=== PATIENT | female | born 1945 | race Hispanic/Latino ===

== ENCOUNTER 2022-07-23 13:12 | Inpatient (IN) | payer MEDICARE, MEDICAID ==
[2022-07-23 13:58] LABS: #Eosinphils 0.1 thou/uL (0.0-0.7); #Monocytes 0.9 thou/uL (0.11-0.59); #Neutrophils 5.3 thou/uL (1.40-6.50); %Basophils 0.6 % (0.0-1.0); %Eosinophils 1.2 % (0.0-10.0); %Lymphocytes 13.1 % (21.0-51.0); %Monocytes 12.4 % (0.0-10.0); %Neutrophils 72.6 % (42.0-75.0); ALT (SGPT) 19 U/L (8-55); AST (SGOT) 38 U/L (5-34); Alkaline Phosphatase 134 U/L (40-110); Anion Gap 11 mmol/L (10-20); BUN (Urea Nitrogen) 12 mg/dL (9.8-20.1); Bilirubin, Total 0.9 mg/dL (0.2-1.2); Calc. Creatinine Clearance 0 mL/min (70-130); Calcium 7.6 mg/dL (7.8-10.44); Carbon Dioxide 26 mmol/L (23-31); Chloride 110 mmol/L (98-107); Estimated GFR 40; Globulin 3.5 g/dL (2.4-3.5); Glucose 87 mg/dL (83-110); Hemoglobin 10.4 g/dL (12.0-16.0); Mean Corpuscular HGB CONC 33.5 g/dL (32.0-36.0); Mean Corpuscular Hemoglobin 37.3 pg (27.0-31.0); Mean Platelet Volume 7.4 fL (7.4-10.4); Platelet Count 182 10x3/uL (130-400); Potassium 3.3 mmol/L (3.5-5.1); Protein, Total 5.5 g/dL (5.8-8.1); RBC Distribution Width 13.9 % (11.5-14.5); Sodium 144 mmol/L (136-145); White Blood Cell (WBC) Count 7.3 10x3/uL (4.8-10.8)
[2022-07-23 13:59] LABS: MDiff Complete? YES
[2022-07-23] MEDS ORDERED: Furosemide 40 MG/4 ML VIAL ONE (14:18)
[2022-07-23] MEDS ORDERED: Acetaminophen 325 MG TAB PO PRN (16:15)
[2022-07-23] MEDS ORDERED: Ondansetron ODT 4 MG TAB SL PRN (16:15)
[2022-07-23] MEDS ORDERED: Ondansetron PF 4 MG/2 ML Vial IVP PRN (16:15)
[2022-07-23 16:41] VITALS: BMI 31.1
[2022-07-23 16:46] LABS: SARS-CoV-2 NAA Rapid Test DETECTED (NotDetected)
[2022-07-23] MEDS: Rosuvastatin 10 MG TAB PO SCH (20:41)
[2022-07-23] MEDS: Midodrine HCl 5 MG TAB PO SCH (20:41)
[2022-07-23] MEDS: Mirtazapine 15 MG TAB PO SCH (20:41)
[2022-07-23] MEDS: Mometasone/Formoterol 200/5 60 PUFF INH SCH (20:42)
[2022-07-24] MEDS ORDERED: Megestrol Acetate 40 MG TAB PO SCH (09:00)
[2022-07-24] MEDS ORDERED: Bisacodyl 5 MG TAB PO PRN (09:01)
[2022-07-24] MEDS ORDERED: Bisacodyl 10 MG SUPP PR PRN (09:01)
[2022-07-24] MEDS: Spironolactone 25 MG TAB PO SCH (09:37)
[2022-07-24] MEDS: Calcitriol 0.25 MCG CAP PO SCH (09:37)
[2022-07-24] MEDS: Midodrine HCl 5 MG TAB PO SCH ×3 (09:38→20:49)
[2022-07-24] MEDS: FLUoxetine HCl 10 MG CAP PO SCH (09:38)
[2022-07-24] MEDS: Aspirin 81 mg Enteric Coated Tablet PO SCH (09:40)
[2022-07-24] MEDS: Montelukast Sodium 10 mg Tablet PO SCH (09:41)
[2022-07-24] MEDS: Mometasone/Formoterol 200/5 60 PUFF INH SCH ×2 (09:42→20:51)
[2022-07-24] MEDS: Torsemide 20 MG TAB PO SCH (10:09)
[2022-07-24] MEDS: Fludrocortisone Acetate 0.1 MG TAB PO SCH (10:36)
[2022-07-24] MEDS: Guaifenesin DM 100-10/5 ML UDCUP PO PRN (14:32)
[2022-07-24] MEDS ORDERED: Multivit, Therapeutic 1 TAB PO SCH (18:30)
[2022-07-24] MEDS ORDERED: Cholecalciferol 1,000 UNITS (25 MCG) TAB PO SCH (18:45)
[2022-07-24] MEDS: Cholecalciferol 1,000 UNITS (25 MCG) TAB PO SCH (18:53)
[2022-07-24] MEDS: Mirtazapine 15 MG TAB PO SCH (20:49)
[2022-07-24] MEDS: Rosuvastatin 10 MG TAB PO SCH (20:49)
[2022-07-24] MEDS: Gabapentin 100 MG CAP PO SCH (20:50)
[2022-07-25] MEDS: Aspirin 81 mg Enteric Coated Tablet PO SCH (08:43)
[2022-07-25] MEDS: FLUoxetine HCl 10 MG CAP PO SCH (08:43)
[2022-07-25] MEDS: Calcitriol 0.25 MCG CAP PO SCH (08:43)
[2022-07-25] MEDS: Fludrocortisone Acetate 0.1 MG TAB PO SCH (08:44)
[2022-07-25] MEDS: Gabapentin 100 MG CAP PO SCH ×2 (08:44→20:33)
[2022-07-25] MEDS: Montelukast Sodium 10 mg Tablet PO SCH (08:44)
[2022-07-25] MEDS: Potassium Chloride 20 MEQ TAB PO SCH (08:46)
[2022-07-25] MEDS: Midodrine HCl 5 MG TAB PO SCH ×3 (08:46→20:33)
[2022-07-25] MEDS: Spironolactone 25 MG TAB PO SCH (08:46)
[2022-07-25] MEDS: Multivit, Therapeutic 1 TAB PO SCH (08:46)
[2022-07-25] MEDS: Enoxaparin Sodium 30 MG/0.3 ML SYRINGE SC SCH (08:47)
[2022-07-25] MEDS: Cholecalciferol 1,000 UNITS (25 MCG) TAB PO SCH (08:47)
[2022-07-25] MEDS: Mometasone/Formoterol 200/5 60 PUFF INH SCH ×2 (08:48→20:34)
[2022-07-25] MEDS: Mirtazapine 15 MG TAB PO SCH (20:33)
[2022-07-25] MEDS: Rosuvastatin 10 MG TAB PO SCH (20:33)
[2022-07-26] MEDS: Enoxaparin Sodium 30 MG/0.3 ML SYRINGE SC SCH (08:27)
[2022-07-26] MEDS: FLUoxetine HCl 10 MG CAP PO SCH (08:27)
[2022-07-26] MEDS: Multivit, Therapeutic 1 TAB PO SCH (08:27)
[2022-07-26] MEDS: Cholecalciferol 1,000 UNITS (25 MCG) TAB PO SCH (08:28)
[2022-07-26] MEDS: Gabapentin 100 MG CAP PO SCH ×2 (08:28→21:08)
[2022-07-26] MEDS: Potassium Chloride 20 MEQ TAB PO SCH (08:28)
[2022-07-26] MEDS: Midodrine HCl 5 MG TAB PO SCH ×3 (08:29→21:08)
[2022-07-26] MEDS: Calcitriol 0.25 MCG CAP PO SCH (08:29)
[2022-07-26] MEDS: Fludrocortisone Acetate 0.1 MG TAB PO SCH (08:29)
[2022-07-26] MEDS: Spironolactone 25 MG TAB PO SCH (08:30)
[2022-07-26] MEDS: Mometasone/Formoterol 200/5 60 PUFF INH SCH ×2 (08:30→21:09)
[2022-07-26] MEDS: Aspirin 81 mg Enteric Coated Tablet PO SCH (08:30)
[2022-07-26] MEDS: Montelukast Sodium 10 mg Tablet PO SCH (08:30)
[2022-07-26] MEDS: Rosuvastatin 10 MG TAB PO SCH (21:08)
[2022-07-26] MEDS: Mirtazapine 15 MG TAB PO SCH (21:08)
[2022-07-27 05:47] LABS: #Basophils 0.1 thou/uL (0.0-0.2); #Lymphocytes 1.6 thou/uL (1.20-3.40); #Monocytes 1.1 thou/uL (0.11-0.59); #Neutrophils 6.3 thou/uL (1.40-6.50); %Basophils 1.2 % (0.0-1.0); %Lymphocytes 17.4 % (21.0-51.0); %Monocytes 12.2 % (0.0-10.0); %Neutrophils 69.1 % (42.0-75.0); Hemoglobin 8.3 g/dL (12.0-16.0); Mean Corpuscular HGB CONC 34.3 g/dL (32.0-36.0); Mean Corpuscular Hemoglobin 37.1 pg (27.0-31.0); Mean Platelet Volume 8.2 fL (7.4-10.4); Platelet Count 135 10x3/uL (130-400); Red Blood Cell (RBC) Count 2.23 mill/uL (4.20-5.40); White Blood Cell (WBC) Count 9.2 10x3/uL (4.8-10.8)
[2022-07-27 05:59] LABS: ALT (SGPT) 12 U/L (8-55); AST (SGOT) 27 U/L (5-34); Albumin 1.7 g/dL (3.4-4.8); Alkaline Phosphatase 118 U/L (40-110); Anion Gap 10 mmol/L (10-20); BUN (Urea Nitrogen) 12 mg/dL (9.8-20.1); Bilirubin, Total 0.6 mg/dL (0.2-1.2); Calc. Creatinine Clearance 45 mL/min (70-130); Calcium 7.7 mg/dL (7.8-10.44); Carbon Dioxide 26 mmol/L (23-31); Chloride 111 mmol/L (98-107); Estimated GFR 38; Globulin 2.9 g/dL (2.4-3.5); Glucose 81 mg/dL (83-110); Potassium 3.3 mmol/L (3.5-5.1); Protein, Total 4.6 g/dL (5.8-8.1); Sodium 144 mmol/L (136-145)
[2022-07-27 08:00] LABS: Thyroid Stimulating Hormone 9.6248 uIU/mL (0.35-4.94)
[2022-07-27] MEDS: Cholecalciferol 1,000 UNITS (25 MCG) TAB PO SCH (09:12)
[2022-07-27] MEDS: Montelukast Sodium 10 mg Tablet PO SCH (09:12)
[2022-07-27] MEDS: Enoxaparin Sodium 30 MG/0.3 ML SYRINGE SC SCH (09:12)
[2022-07-27] MEDS: Multivit, Therapeutic 1 TAB PO SCH (09:12)
[2022-07-27] MEDS: Aspirin 81 mg Enteric Coated Tablet PO SCH (09:12)
[2022-07-27] MEDS: Midodrine HCl 5 MG TAB PO SCH ×3 (09:12→20:41)
[2022-07-27] MEDS: Potassium Chloride 20 MEQ TAB PO SCH (09:12)
[2022-07-27] MEDS: FLUoxetine HCl 10 MG CAP PO SCH (09:12)
[2022-07-27] MEDS: Fludrocortisone Acetate 0.1 MG TAB PO SCH (09:13)
[2022-07-27] MEDS: Spironolactone 25 MG TAB PO SCH ×2 (09:13→09:33)
[2022-07-27] MEDS: Gabapentin 100 MG CAP PO SCH ×2 (09:13→20:41)
[2022-07-27] MEDS: Calcitriol 0.25 MCG CAP PO SCH (09:14)
[2022-07-27] MEDS: Mometasone/Formoterol 200/5 60 PUFF INH SCH ×2 (09:14→20:42)
[2022-07-27] MEDS: Torsemide 20 MG TAB PO SCH (09:33)
[2022-07-27] MEDS: Guaifenesin DM 100-10/5 ML UDCUP PO PRN (20:39)
[2022-07-27] MEDS: Rosuvastatin 10 MG TAB PO SCH (20:41)
[2022-07-27] MEDS: Mirtazapine 15 MG TAB PO SCH (20:41)
[2022-07-28] MEDS: Guaifenesin DM 100-10/5 ML UDCUP PO PRN ×3 (05:45→20:16)
[2022-07-28] MEDS: Montelukast Sodium 10 mg Tablet PO SCH (09:02)
[2022-07-28] MEDS: Aspirin 81 mg Enteric Coated Tablet PO SCH (09:02)
[2022-07-28] MEDS: FLUoxetine HCl 10 MG CAP PO SCH (09:02)
[2022-07-28] MEDS: Fludrocortisone Acetate 0.1 MG TAB PO SCH (09:02)
[2022-07-28] MEDS: Multivit, Therapeutic 1 TAB PO SCH (09:03)
[2022-07-28] MEDS: Gabapentin 100 MG CAP PO SCH ×2 (09:03→20:16)
[2022-07-28] MEDS: Potassium Chloride 20 MEQ TAB PO SCH (09:03)
[2022-07-28] MEDS: Midodrine HCl 5 MG TAB PO SCH ×3 (09:03→20:16)
[2022-07-28] MEDS: Spironolactone 25 MG TAB PO SCH (09:04)
[2022-07-28] MEDS: Enoxaparin Sodium 30 MG/0.3 ML SYRINGE SC SCH (09:04)
[2022-07-28] MEDS: Mometasone/Formoterol 200/5 60 PUFF INH SCH ×2 (09:04→20:18)
[2022-07-28] MEDS: Cholecalciferol 1,000 UNITS (25 MCG) TAB PO SCH (09:04)
[2022-07-28] MEDS: Calcitriol 0.25 MCG CAP PO SCH (09:04)
[2022-07-28] MEDS ORDERED: Ondansetron ODT 4 MG TAB PO PRN (10:24)
[2022-07-28] MEDS ORDERED: Bisacodyl 5 MG TAB PO PRN (10:25)
[2022-07-28] MEDS ORDERED: Bisacodyl 10 MG SUPP PR PRN (10:26)
[2022-07-28] MEDS: Rosuvastatin 10 MG TAB PO SCH (20:16)
[2022-07-28] MEDS: Mirtazapine 15 MG TAB PO SCH (20:16)
[2022-07-28 21:23] LABS: Bilirubin Small (Negative); Blood, Urine Negative (Negative); Clarity Cloudy (Clear); Glucose, Urine (Dipstick) Negative (Negative); Ketone, Urine Trace mg/dL (Negative); Leukocyte Negative (Negative); Nitrite Negative (Negative); Protein, Urine (Dipstick) > or equal to 300 mg/dL (Neg-Trace)
[2022-07-28 21:29] LABS: RBC/HPF None Seen HPF (0-3); Specific Gravity, Urine 1.024 (1.002-1.036)
[2022-07-28 21:30] LABS: Bacteria/HPF 2+ HPF (None Seen); Mucous/LPF 2+ LPF (<2+)
[2022-07-29 05:54] LABS: Hemoglobin 8.6 g/dL (12.0-16.0); Mean Corpuscular HGB CONC 35.5 g/dL (32.0-36.0); Mean Corpuscular Hemoglobin 38.4 pg (27.0-31.0); Mean Platelet Volume 10.3 fL (7.4-10.4); Platelet Count 115 10x3/uL (130-400); RBC Distribution Width 13.2 % (11.5-14.5); Red Blood Cell (RBC) Count 2.24 mill/uL (4.20-5.40); White Blood Cell (WBC) Count 23.9 10x3/uL (4.8-10.8)
[2022-07-29 06:05] LABS: ALT (SGPT) 13 U/L (8-55); AST (SGOT) 37 U/L (5-34); Albumin 1.8 g/dL (3.4-4.8); Alkaline Phosphatase 140 U/L (40-110); Anion Gap 12 mmol/L (10-20); BUN (Urea Nitrogen) 17 mg/dL (9.8-20.1); Bilirubin, Total 0.6 mg/dL (0.2-1.2); Calc. Creatinine Clearance 33 mL/min (70-130); Calcium 8.1 mg/dL (7.8-10.44); Carbon Dioxide 23 mmol/L (23-31); Chloride 108 mmol/L (98-107); Estimated GFR 27; Globulin 3.2 g/dL (2.4-3.5); Glucose 77 mg/dL (83-110); Potassium 3.9 mmol/L (3.5-5.1); Sodium 139 mmol/L (136-145)
[2022-07-29 06:12] LABS: MDiff Complete? YES; Macrocytosis SLIGHT = 6-15 cells (100X) (0-5/hpf); Platelet Morphology Comment Appears Decreased
[2022-07-29 06:13] LABS: Lymphocytes 4 % (21-51); Monocytes 5 % (0-10); Neutrophil 90 % (42-75)
[2022-07-29] MEDS: Fludrocortisone Acetate 0.1 MG TAB PO SCH (08:53)
[2022-07-29] MEDS: FLUoxetine HCl 10 MG CAP PO SCH (08:53)
[2022-07-29] MEDS: Calcitriol 0.25 MCG CAP PO SCH (08:53)
[2022-07-29] MEDS: Midodrine HCl 5 MG TAB PO SCH ×3 (08:53→20:35)
[2022-07-29] MEDS: Multivit, Therapeutic 1 TAB PO SCH (08:53)
[2022-07-29] MEDS: Cholecalciferol 1,000 UNITS (25 MCG) TAB PO SCH (08:54)
[2022-07-29] MEDS: Potassium Chloride 20 MEQ TAB PO SCH (08:54)
[2022-07-29] MEDS: Gabapentin 100 MG CAP PO SCH ×2 (08:54→20:35)
[2022-07-29] MEDS: Montelukast Sodium 10 mg Tablet PO SCH (08:54)
[2022-07-29] MEDS: Aspirin 81 mg Enteric Coated Tablet PO SCH (08:55)
[2022-07-29] MEDS: Enoxaparin Sodium 30 MG/0.3 ML SYRINGE SC SCH (09:02)
[2022-07-29] MEDS: Spironolactone 25 MG TAB PO SCH (09:02)
[2022-07-29] MEDS: Torsemide 20 MG TAB PO SCH (09:03)
[2022-07-29] MEDS: Mometasone/Formoterol 200/5 60 PUFF INH SCH ×2 (09:04→21:00)
[2022-07-29] MEDS: Cefepime 1 GM in Sodium Chloride 0.9% 100 ML IVPB SCH (20:34)
[2022-07-29] MEDS: Mirtazapine 15 MG TAB PO SCH (20:35)
[2022-07-29] MEDS: Rosuvastatin 10 MG TAB PO SCH (20:35)
[2022-07-30] MEDS: Benzonatate 100 MG CAP PO PRN ×2 (04:43→21:34)
[2022-07-30] MEDS: FLUoxetine HCl 10 MG CAP PO SCH (09:34)
[2022-07-30] MEDS: Gabapentin 100 MG CAP PO SCH ×2 (09:34→21:30)
[2022-07-30] MEDS: Enoxaparin Sodium 30 MG/0.3 ML SYRINGE SC SCH (09:34)
[2022-07-30] MEDS: Torsemide 20 MG TAB PO SCH (09:35)
[2022-07-30] MEDS: Aspirin 81 mg Enteric Coated Tablet PO SCH (09:35)
[2022-07-30] MEDS: Multivit, Therapeutic 1 TAB PO SCH (09:35)
[2022-07-30] MEDS: Calcitriol 0.25 MCG CAP PO SCH (09:35)
[2022-07-30] MEDS: Cholecalciferol 1,000 UNITS (25 MCG) TAB PO SCH (09:36)
[2022-07-30] MEDS: Spironolactone 25 MG TAB PO SCH (09:36)
[2022-07-30] MEDS: Saccharomyces boulardii 250 MG CAP PO SCH (09:36)
[2022-07-30] MEDS: Montelukast Sodium 10 mg Tablet PO SCH (09:36)
[2022-07-30] MEDS: Potassium Chloride 20 MEQ TAB PO SCH (09:36)
[2022-07-30] MEDS: Midodrine HCl 5 MG TAB PO SCH ×3 (09:36→21:30)
[2022-07-30] MEDS: Fludrocortisone Acetate 0.1 MG TAB PO SCH (09:37)
[2022-07-30] MEDS: Mometasone/Formoterol 200/5 60 PUFF INH SCH ×2 (09:37→21:42)
[2022-07-30] MEDS ORDERED: Loperamide HCl 2 MG CAP PO PRN (16:59)
[2022-07-30] MEDS ORDERED: Loperamide HCl 2 MG CAP PO SCH (17:00)
[2022-07-30] MEDS ORDERED: Sodium Chloride 0.9% 1,000 ML IV SCH (17:00)
[2022-07-30] MEDS: Rosuvastatin 10 MG TAB PO SCH (21:29)
[2022-07-30] MEDS: Mirtazapine 15 MG TAB PO SCH (21:30)
[2022-07-30] MEDS: Cefepime 1 GM in Sodium Chloride 0.9% 100 ML IVPB SCH (21:30)
[2022-07-31] MEDS: Mometasone/Formoterol 200/5 60 PUFF INH SCH ×2 (00:05→09:38)
[2022-07-31 05:14] LABS: ALT (SGPT) 11 U/L (8-55); AST (SGOT) 39 U/L (5-34); Albumin 1.6 g/dL (3.4-4.8); Alkaline Phosphatase 132 U/L (40-110); Anion Gap 14 mmol/L (10-20); BUN (Urea Nitrogen) 32 mg/dL (9.8-20.1); Bilirubin, Total 0.4 mg/dL (0.2-1.2); Calc. Creatinine Clearance 26 mL/min (70-130); Carbon Dioxide 21 mmol/L (23-31); Chloride 106 mmol/L (98-107); Estimated GFR 20; Globulin 2.9 g/dL (2.4-3.5); Glucose 62 mg/dL (83-110); Potassium 4.7 mmol/L (3.5-5.1); Protein, Total 4.5 g/dL (5.8-8.1); Sodium 136 mmol/L (136-145)
[2022-07-31] MEDS: Levothyroxine Sodium 88 MCG TAB PO SCH (05:52)
[2022-07-31 05:58] LABS: #Lymphocytes 0.9 thou/uL (1.20-3.40); #Monocytes 0.8 thou/uL (0.11-0.59); #Neutrophils 11.6 thou/uL (1.40-6.50); %Basophils 0.3 % (0.0-1.0); %Lymphocytes 6.6 % (21.0-51.0); %Monocytes 5.8 % (0.0-10.0); %Neutrophils 87.2 % (42.0-75.0); Hemoglobin 7.7 g/dL (12.0-16.0); Mean Corpuscular HGB CONC 34.3 g/dL (32.0-36.0); Mean Corpuscular Hemoglobin 37.9 pg (27.0-31.0); Mean Platelet Volume 8.9 fL (7.4-10.4); Platelet Count 138 10x3/uL (130-400); RBC Distribution Width 13.6 % (11.5-14.5); Red Blood Cell (RBC) Count 2.04 mill/uL (4.20-5.40); White Blood Cell (WBC) Count 13.3 10x3/uL (4.8-10.8)
[2022-07-31 06:28] LABS: Anisocytosis MODERATE=16-30 cells (100X) (0-5/hpf); MDiff Complete? YES; Macrocytosis SLIGHT = 6-15 cells (100X) (0-5/hpf); Platelet Morphology Comment Appears Adequate; Polychromasia SLIGHT = 2-3 cells (100X) (0-2/hpf)
[2022-07-31] MEDS: Enoxaparin Sodium 30 MG/0.3 ML SYRINGE SC SCH (09:34)
[2022-07-31] MEDS: FLUoxetine HCl 10 MG CAP PO SCH (09:35)
[2022-07-31] MEDS: Gabapentin 100 MG CAP PO SCH ×2 (09:35→21:08)
[2022-07-31] MEDS: Montelukast Sodium 10 mg Tablet PO SCH (09:37)
[2022-07-31] MEDS: Fludrocortisone Acetate 0.1 MG TAB PO SCH (09:37)
[2022-07-31] MEDS: Saccharomyces boulardii 250 MG CAP PO SCH (09:37)
[2022-07-31] MEDS: Multivit, Therapeutic 1 TAB PO SCH (09:37)
[2022-07-31] MEDS: Cholecalciferol 1,000 UNITS (25 MCG) TAB PO SCH (09:37)
[2022-07-31] MEDS: Aspirin 81 mg Enteric Coated Tablet PO SCH (09:37)
[2022-07-31] MEDS: Calcitriol 0.25 MCG CAP PO SCH (09:37)
[2022-07-31] MEDS: Midodrine HCl 5 MG TAB PO SCH ×3 (09:37→21:08)
[2022-07-31] MEDS: Potassium Chloride 20 MEQ TAB PO SCH (09:38)
[2022-07-31] MEDS: Spironolactone 25 MG TAB PO SCH (09:38)
[2022-07-31] MEDS: Sodium Chloride 0.9% 1,000 ML IV SCH (17:59)
[2022-07-31] MEDS: Cefepime 1 GM in Sodium Chloride 0.9% 100 ML IVPB SCH (21:07)
[2022-07-31] MEDS: Mirtazapine 15 MG TAB PO SCH (21:08)
[2022-07-31] MEDS: Rosuvastatin 10 MG TAB PO SCH (21:08)
[2022-07-31] MEDS: Benzonatate 100 MG CAP PO PRN (21:08)
[2022-08-01] MEDS: Loperamide HCl 2 MG CAP PO PRN ×2 (05:26→09:17)
[2022-08-01] MEDS: Levothyroxine Sodium 88 MCG TAB PO SCH (05:27)
[2022-08-01] MEDS: Enoxaparin Sodium 30 MG/0.3 ML SYRINGE SC SCH (08:42)
[2022-08-01] MEDS: Multivit, Therapeutic 1 TAB PO SCH (08:43)
[2022-08-01] MEDS: Montelukast Sodium 10 mg Tablet PO SCH (08:43)
[2022-08-01] MEDS: Calcitriol 0.25 MCG CAP PO SCH (08:43)
[2022-08-01] MEDS: Aspirin 81 mg Enteric Coated Tablet PO SCH (08:43)
[2022-08-01] MEDS: FLUoxetine HCl 10 MG CAP PO SCH (08:44)
[2022-08-01] MEDS: Gabapentin 100 MG CAP PO SCH ×2 (08:44→20:22)
[2022-08-01] MEDS: Saccharomyces boulardii 250 MG CAP PO SCH (08:45)
[2022-08-01] MEDS: Potassium Chloride 20 MEQ TAB PO SCH (08:46)
[2022-08-01] MEDS: Cholecalciferol 1,000 UNITS (25 MCG) TAB PO SCH (08:46)
[2022-08-01] MEDS: Spironolactone 25 MG TAB PO SCH (08:46)
[2022-08-01] MEDS: Fludrocortisone Acetate 0.1 MG TAB PO SCH (08:47)
[2022-08-01] MEDS: Midodrine HCl 5 MG TAB PO SCH ×3 (08:47→20:22)
[2022-08-01] MEDS: Mometasone/Formoterol 200/5 60 PUFF INH SCH ×2 (08:50→20:22)
[2022-08-01] MEDS: Sodium Chloride 0.9% 1,000 ML IV SCH ×2 (08:54→20:21)
[2022-08-01] MEDS: Rosuvastatin 10 MG TAB PO SCH (20:21)
[2022-08-01] MEDS: Cefepime 1 GM in Sodium Chloride 0.9% 100 ML IVPB SCH (20:21)
[2022-08-01] MEDS: Mirtazapine 15 MG TAB PO SCH (20:24)
[2022-08-01] MEDS: Guaifenesin DM 100-10/5 ML UDCUP PO PRN (21:01)
[2022-08-02] MEDS: Levothyroxine Sodium 88 MCG TAB PO SCH (05:40)
[2022-08-02 06:37] VITALS: BP 81/47; TEMP 98.2
[2022-08-02] MEDS: Sodium Chloride 0.9% 1,000 ML IV SCH (09:25)
[2022-08-02] MEDS: FLUoxetine HCl 10 MG CAP PO SCH (09:28)
[2022-08-02] MEDS: Enoxaparin Sodium 30 MG/0.3 ML SYRINGE SC SCH (09:29)
[2022-08-02] MEDS: Cholecalciferol 1,000 UNITS (25 MCG) TAB PO SCH (09:30)
[2022-08-02] MEDS: Aspirin 81 mg Enteric Coated Tablet PO SCH (09:30)
[2022-08-02] MEDS: Midodrine HCl 5 MG TAB PO SCH (09:30)
[2022-08-02] MEDS: Fludrocortisone Acetate 0.1 MG TAB PO SCH (09:30)
[2022-08-02] MEDS: Montelukast Sodium 10 mg Tablet PO SCH (09:30)
[2022-08-02] MEDS: Saccharomyces boulardii 250 MG CAP PO SCH (09:30)
[2022-08-02] MEDS: Multivit, Therapeutic 1 TAB PO SCH (09:30)
[2022-08-02] MEDS: Calcitriol 0.25 MCG CAP PO SCH (09:30)
[2022-08-02] MEDS: Spironolactone 25 MG TAB PO SCH (09:31)
[2022-08-02] MEDS: Potassium Chloride 20 MEQ TAB PO SCH (09:31)
[2022-08-02] MEDS: Gabapentin 100 MG CAP PO SCH (09:31)
[2022-08-02] MEDS: Mometasone/Formoterol 200/5 60 PUFF INH SCH (09:32)
== END 2022-08-02 12:50 | disposition short-term general hospital (02) | DRG 177 ==
LOC: BURERS 13:12 → UNDOADMOB 14:43 → BURMED 14:43 → OBSVTOIN 14:43
PROVIDERS: ADMIT Family Medicine; ATTEND Family Medicine
DX: U07.1 COVID-19 (principal); J12.82 Pneumonia due to coronavirus disease 2019; I13.0 Hypertensive heart and chronic kidney disease with heart failure and stage 1 through stage 4 chronic kidney disease, or unspecified chronic kidney disease; R53.1 Weakness; R53.81 Other malaise; I25.10 Atherosclerotic heart disease of native coronary artery without angina pectoris; I50.9 Heart failure, unspecified; N18.9 Chronic kidney disease, unspecified; J45.909 Unspecified asthma, uncomplicated; F32.A Depression, unspecified; F17.210 Nicotine dependence, cigarettes, uncomplicated; Z90.710 Acquired absence of both cervix and uterus; Z82.49 Family history of ischemic heart disease and other diseases of the circulatory system; Z90.49 Acquired absence of other specified parts of digestive tract; Z79.82 Long term (current) use of aspirin; Z79.899 Other long term (current) drug therapy; Z88.2 Allergy status to sulfonamides
CPT/HCPCS: 36415; 36416; 71045; 80053; 81001; 82607; 83605; 83880; 84443; 85025; 87040; 87086; 87324; 87449; 94664; 96365; 96375; G0378; J0692; J1650; J1940; J1956; J3490; J7050; Q0162; S0179; U0002